=== PATIENT | male | born 1990 | race Caucasian/White ===

== ENCOUNTER 2016-10-16 16:51 | Emergency (ER) | payer OTHER ==
[~2016-10-16] VITALS: Ht 167.6 cm; Wt 90.9 kg
[2016-10-16 19:33] VITALS: BP 145/85
== END 2016-10-16 19:33 | disposition home or self-care (01) ==
LOC: ED 16:51
DX: S99.811A Other specified injuries of right ankle, initial encounter (principal); W20.8XXA Other cause of strike by thrown, projected or falling object, initial encounter; Y93.89 Activity, other specified; Y99.8 Other external cause status; Y92.89 Other specified places as the place of occurrence of the external cause